=== PATIENT | male | born 1975 | race Caucasian/White ===

== ENCOUNTER 2017-01-22 14:10 | Emergency (ER) | payer OTHER ==
[2017-01-22 14:27] VITALS: BP 127/85
== END 2017-01-22 16:19 | disposition home or self-care (01) ==
LOC: ED 14:10
DX: L23.9 Allergic contact dermatitis, unspecified cause (principal)
CPT/HCPCS: J1200; J2930

== ENCOUNTER 2017-12-28 18:20 | Emergency (ER) | payer MEDICAID ==
[2017-12-28 18:31] VITALS: Ht 180.3 cm
[2017-12-28 19:22] LABS: CALCIUM 9.3 mg/dL (8.5-10.1); CARBON DIOXIDE 30.1 mmol/L (21-32); CHLORIDE SERUM 104 mmol/L (98-107); CREATININE SERUM 0.9 mg/dL (0.7-1.3); GFR1 > 60 mL/min; GLUCOSE SERUM 97 mg/dL (74-106); POTASSIUM SERUM 3.8 mmol/L (3.5-5.1); SODIUM SERUM 139 mmol/L (136-145)
[2017-12-28 19:23] LABS: BASOPHIL % 0.5 % (0-2); PLATELET COUNT 299 x10^3mcL (130-400); RED CELL DISTRIBUTION WIDTH 13.9 % (11.5-14.5)
[2017-12-28 20:00] VITALS: BP 132/74
== END 2017-12-28 20:00 | disposition home or self-care (01) ==
LOC: ED 18:20
PROVIDERS: Emergency Medicine
DX: K62.5 Hemorrhage of anus and rectum (principal)
CPT/HCPCS: 36415